=== PATIENT | female | born 1970 | race Caucasian/White ===

== ENCOUNTER 2016-08-15 09:57 | Outpatient (CLI) | payer OTHER ==
[~2016-08-15] VITALS: Ht 177.8 cm; Wt 116.1 kg
[~2016-08-15 09:57] MED LIST: BUPR150T6 PO; CPR500T PO; HYOS0.3710 PO; NAPR550T PO
--- OUTSIDE RECORDS SUMMARY | 2016-08-15 10:03 | XMS REPORT | Continuity of Care Document ---
Author Author [facility] Organization [facility] Address Unknown Phone Unavailable Allergies Active Description Code Type Severity Reaction Onset Reported/Identified Relationship to Patient Clinical Status Yes Vicodin Drug Allergy 04/26/2011 Yes Vicodin Drug Allergy N/A N/A 04/26/2011 Yes acetaminophen [id number] Drug Allergy Unknown N/A 08/21/2012 Yes hydrocodone bit [id number] Drug Allergy Unknown N/A 08/21/2012 Yes propoxyphene napsylate [id number] Drug Allergy Unknown N/A 08/21/2012 Medications Problems Date Dx Coded Attending Type Code Diagnosis Diagnosed By 04/26/2011 256.4 POLYCYSTIC OVARIAN SYNDROME 04/26/2011 314.00 ADHD, PREDOMINANTLY INATTENTIVE TYPE 04/26/2011 477.9 ALLERGIC RHINITIS 04/26/2011 564.1 IRRITABLE BOWEL SYNDROME 04/26/2011 616.2 Bartholin Gland Cyst 04/26/2011 URBAN OLIVAS DO 256.4 POLYCYSTIC OVARIAN SYNDROME 04/26/2011 URBAN OLIVAS DO 314.00 ATTENTION DEFICIT DISORDER WITHOUT HYPERACTIVITY 04/26/2011 URBAN OLIVAS DO 477.9 ALLERGIC RHINITIS 04/26/2011 URBAN OLIVAS DO 564.1 IRRITABLE BOWEL SYNDROME 04/26/2011 URBAN OLIVAS DO 616.2 Bartholin Gland Cyst 04/26/2011 256.4 POLYCYSTIC OVARIAN SYNDROME 04/26/2011 314.00 ATTENTION DEFICIT DISORDER WITHOUT HYPERACTIVITY 04/26/2011 477.9 ALLERGIC RHINITIS 04/26/2011 564.1 IRRITABLE BOWEL SYNDROME 04/26/2011 616.2 Bartholin Gland Cyst 04/26/2011 256.4 POLYCYSTIC OVARIAN SYNDROME 04/26/2011 314.00 ATTENTION DEFICIT DISORDER WITHOUT HYPERACTIVITY 04/26/2011 477.9 ALLERGIC RHINITIS 04/26/2011 564.1 IRRITABLE BOWEL SYNDROME 04/26/2011 616.2 Bartholin Gland Cyst 04/26/2011 256.4 POLYCYSTIC OVARIAN SYNDROME 04/26/2011 314.00 ATTENTION DEFICIT DISORDER WITHOUT HYPERACTIVITY 04/26/2011 477.9 ALLERGIC RHINITIS 04/26/2011 564.1 IRRITABLE BOWEL SYNDROME 04/26/2011 616.2 Bartholin Gland Cyst 04/26/2011 OLIVAS DO, URBAN K 256.4 POLYCYSTIC OVARIAN SYNDROME 04/26/2011 OLIVAS DO, URBAN K 314.00 ATTENTION DEFICIT DISORDER WITHOUT HYPERACTIVITY 04/26/2011 OLIVAS DO, URBAN K 477.9 ALLERGIC RHINITIS 04/26/2011 OLIVAS DO, URBAN K 564.1 IRRITABLE BOWEL SYNDROME 04/26/2011 OLIVAS DO, URBAN K 616.2 Bartholin Gland Cyst 04/26/2011 OLIVAS DO, URBAN K 256.4 POLYCYSTIC OVARIAN SYNDROME 04/26/2011 OLIVAS DO, URBAN K 314.00 ATTENTION DEFICIT DISORDER WITHOUT HYPERACTIVITY 04/26/2011 OLIVAS DO, URBAN K 477.9 ALLERGIC RHINITIS 04/26/2011 OLIVAS DO, URBAN K 564.1 IRRITABLE BOWEL SYNDROME 04/26/2011 OLIVAS DO, URBAN K 616.2 Bartholin Gland Cyst 04/26/2011 DEVIKA LOGISTICS SUPPLY OFFICER, MERCEDES S 256.4 POLYCYSTIC OVARIAN SYNDROME 04/26/2011 DEVIKA LOGISTICS SUPPLY OFFICER, MERCEDES S 314.00 ATTENTION DEFICIT DISORDER WITHOUT HYPERACTIVITY 04/26/2011 DEVIKA LOGISTICS SUPPLY OFFICER, MERCEDES S 477.9 ALLERGIC RHINITIS 04/26/2011 DEVIKA LOGISTICS SUPPLY OFFICER, MERCEDES S 564.1 IRRITABLE BOWEL SYNDROME 04/26/2011 DEVIKA LOGISTICS SUPPLY OFFICER, MERCEDES S 616.2 Bartholin Gland Cyst 04/26/2011 SIMON LOGISTICS SUPPLY OFFICER, PAO R 256.4 POLYCYSTIC OVARIAN SYNDROME 04/26/2011 SIMON LOGISTICS SUPPLY OFFICER, PAO R 314.00 ATTENTION DEFICIT DISORDER WITHOUT HYPERACTIVITY 04/26/2011 SIMON LOGISTICS SUPPLY OFFICER, PAO R 477.9 ALLERGIC RHINITIS 04/26/2011 SIMON LOGISTICS SUPPLY OFFICER, PAO R 564.1 IRRITABLE BOWEL SYNDROME 04/26/2011 SIMON LOGISTICS SUPPLY OFFICER, PAO R 616.2 Bartholin Gland Cyst 04/26/2011 OLIVAS DO, URBAN K 256.4 POLYCYSTIC OVARIAN SYNDROME 04/26/2011 OLIVAS DO, URBAN K 314.00 ATTENTION DEFICIT DISORDER WITHOUT HYPERACTIVITY 04/26/2011 OLIVAS DO, URBAN K 477.9 ALLERGIC RHINITIS 04/26/2011 OLIVAS DO, URBAN K 564.1 IRRITABLE BOWEL SYNDROME 04/26/2011 URBAN OLIVAS DO K 616.2 Bartholin Gland Cyst 04/26/2011 RACHELL LOGISTICS SUPPLY OFFICER, NUSRAT A 256.4 POLYCYSTIC OVARIAN SYNDROME 04/26/2011 RACHELL LOGISTICS SUPPLY OFFICER, NUSRAT A 314.00 ATTENTION DEFICIT DISORDER WITHOUT HYPERACTIVITY 04/26/2011 RACHELL LOGISTICS SUPPLY OFFICER, NUSRAT A 477.9 ALLERGIC RHINITIS 04/26/2011 RACHELL LOGISTICS SUPPLY OFFICER, NUSRAT A 564.1 IRRITABLE BOWEL SYNDROME 04/26/2011 RACHELL LOGISTICS SUPPLY OFFICER, NUSRAT A 616.2 Bartholin Gland Cyst 04/26/2011 OLIVAS KINDRA MILLERA K 256.4 POLYCYSTIC OVARIAN SYNDROME 04/26/2011 URBAN OLIVAS DO K 314.00 ATTENTION DEFICIT DISORDER WITHOUT HYPERACTIVITY 04/26/2011 URBAN OLIVAS DO K 477.9 ALLERGIC RHINITIS 04/26/2011 URBAN OLIVAS DO K 564.1 IRRITABLE BOWEL SYNDROME 04/26/2011 URBAN OLIVAS DO K 616.2 Bartholin Gland Cyst 05/08/2011 V76.2 CERVICAL CANCER SCREENING (PAP SMEAR) 05/08/2011 URBAN OLIVAS DO V76.2 CERVICAL CANCER SCREENING (PAP SMEAR) 05/08/2011 V76.2 CERVICAL CANCER SCREENING (PAP SMEAR) 05/08/2011 V76.2 CERVICAL CANCER SCREENING (PAP SMEAR) 05/08/2011 V76.2 CERVICAL CANCER SCREENING (PAP SMEAR) 05/08/2011 URBAN OLIVAS DO V76.2 CERVICAL CANCER SCREENING (PAP SMEAR) 05/08/2011 URBAN OLIVAS DO V76.2 CERVICAL CANCER SCREENING (PAP SMEAR) 05/08/2011 DEVIKAMONCHO JOYA MERCEDES S V76.2 CERVICAL CANCER SCREENING (PAP SMEAR) 05/08/2011 PAO SIMON APRN R V76.2 CERVICAL CANCER SCREENING (PAP SMEAR ) 05/08/2011 URBAN OLIVAS DO V76.2 CERVICAL CANCER SCREENING (PAP SMEAR) 05/08/2011 RACHELL LOGISTICS SUPPLY OFFICER, NUSRAT A V76.2 CERVICAL CANCER SCREENING (PAP SMEAR) 05/08/2011 URBAN OLIVAS DO V76.2 CERVICAL CANCER SCREENING (PAP SMEAR) 05/25/2011 466.0 Bronchitis, Acute 05/25/2011 530.81 GERD 05/25/2011 OLIVAS DO, URBAN K 466.0 Bronchitis, Acute 05/25/2011 OLIVAS DO, URBAN K 530.81 GERD 05/25/2011 466.0 Bronchitis, Acute 05/25/2011 530.81 GERD 05/25/2011 466.0 Bronchitis, Acute 05/25/2011 530.81 GERD 05/25/2011 466.0 Bronchitis, Acute 05/25/2011 530.81 GERD 05/25/2011 OLIVAS DO, URBAN K 466.0 Bronchitis, Acute 05/25/2011 OLIVAS DO, URBAN K 530.81 GERD 05/25/2011 OLIVAS DO, URBAN K 466.0 Bronchitis, Acute 05/25/2011 OLIVAS DO, URBAN K 530.81 GERD 05/25/2011 DEVIKA LOGISTICS SUPPLY OFFICERROSEANNEMERCEDES S 466.0 Bronchitis, Acute 05/25/2011 DEVIKA LOGIST[employer] SUPPLY OFFICER MERCEDES S 530.81 GERD 05/25/2011 CHILO SIMON APRNRICIA R 466.0 Bronchitis, Acute 05/25/2011 CHILO SIMON APRNRICIA R 530.81 GERD 05/25/2011 OLIVAS DO, URBAN K 466.0 Bronchitis, Acute 05/25/2011 OLIVAS DO, URBAN K 530.81 GERD 05/25/2011 RACHELL LOGISTICS SUPPLY OFFICER, NUSRAT A 466.0 Bronchitis, Acute 05/25/2011 RACHELLAWILDA HAIRSTONN NUSRAT A 530.81 GERD 05/25/2011 OLIVAS DO, URBAN K 466.0 Bronchitis, Acute 05/25/2011 OLIVAS DO, URBAN K 530.81 GERD 05/27/2011 562.00 DIVERTICULOSIS 05/27/2011 OLIVAS DO, URBAN K 562.00 DIVERTICULOSIS 05/27/2011 562.00 DIVERTICULOSIS 05/27/2011 562.00 DIVERTICULOSIS 05/27/2011 562.00 DIVERTICULOSIS 05/27/2011 OLIVAS DO, URBAN K 562.00 DIVERTICULOSIS 05/27/2011 OLIVAS DO, URBAN K 562.00 DIVERTICULOSIS 05/27/2011 DEVIKA JOYA MERCEDES S 562.00 DIVERTICULOSIS 05/27/2011 CHILO SIMON APRNRICIA R 562.00 DIVERTICULOSIS 05/27/2011 OLIVAS DO, URBAN K 562.00 DIVERTICULOSIS 05/27/2011 RACHELL LOGISTICS SUPPLY OFFICER, NUSRAT A 562.00 DIVERTICULOSIS 05/27/2011 OLIVAS DO, URBAN K 562.00 DIVERTICULOSIS 10/22/2011 461.9 Sinusitis Acute 10/22/2011 530.81 GERD 10/22/2011 OLIVAS DO, URBAN K 461.9 Sinusitis Acute 10/22/2011 OLIVAS DO, URBAN K 530.81 GERD 10/22/2011 461.9 Sinusitis Acute 10/22/2011 530.81 GERD 10/22/2011 461.9 Sinusitis Acute 10/22/2011 530.81 GERD 10/22/2011 461.9 Sinusitis Acute 10/22/2011 530.81 GERD 10/22/2011 OLIVAS DO, URBAN K 461.9 Sinusitis Acute 10/22/2011 OLIVAS DO, URBAN K 530.81 GERD 10/22/2011 OLIVAS DO, URBAN K 461.9 Sinusitis Acute 10/22/2011 OLIVAS DO, URBAN K 530.81 GERD 10/22/2011 DEVIKA LOGISTICS SUPPLY OFFICER, MERCEDES S 461.9 Sinusitis Acute 10/22/2011 DEVIKA LOGISTICS SUPPLY OFFICER, MERCEDES S 530.81 GERD 10/22/2011 SIMON LOGISTICS SUPPLY OFFICER, PAO R 461.9 Sinusitis Acute 10/22/2011 SIMON LOGISTICS SUPPLY OFFICER, PAO R 530.81 GERD 10/22/2011 OLIVAS DO, URBAN K 461.9 Sinusitis Acute 10/22/2011 OLIVAS DO, URBAN K 530.81 GERD 10/22/2011 RACHELL LOGISTICS SUPPLY OFFICER, NUSRAT A 461.9 Sinusitis Acute 10/22/2011 RACHELL LOGISTICS SUPPLY OFFICER, NUSRAT A 530.81 GERD 10/22/2011 OLIVAS DO, URBAN K 461.9 Sinusitis Acute 10/22/2011 OLIVAS DO, URBAN K 530.81 GERD 12/18/2011 571.8 OTHER CHRONIC NONALCOHOLIC LIVER DISEASE 12/18/2011 599.70 Hematuria Unspecified 12/18/2011 OLIVAS DO, URBAN K 571.8 OTHER CHRONIC NONALCOHOLIC LIVER DISEASE 12/18/2011 OLIVAS DO, URBAN K 599.70 Hematuria Unspecified 12/18/2011 571.8 OTHER CHRONIC NONALCOHOLIC LIVER DISEASE 12/18/2011 599.70 Hematuria Unspecified 12/18/2011 571.8 OTHER CHRONIC NONALCOHOLIC LIVER DISEASE 12/18/2011 599.70 Hematuria Unspecified 12/18/2011 571.8 OTHER CHRONIC NONALCOHOLIC LIVER DISEASE 12/18/2011 599.70 Hematuria Unspecified 12/18/2011 OLIVAS DO, URBAN K 571.8 OTHER CHRONIC NONALCOHOLIC LIVER DISEASE 12/18/2011 OLIVAS DO, URBAN K 599.70 Hematuria Unspecified 12/18/2011 OLIVAS DO, URBAN K 571.8 OTHER CHRONIC NONALCOHOLIC LIVER DISEASE 12/18/2011 OLIVAS DO, URBAN K 599.70 Hematuria Unspecified 12/18/2011 DEVIKA LOGISTICS SUPPLY OFFICER, MERCEDES S 571.8 OTHER CHRONIC NONALCOHOLIC LIVER DISEASE 12/18/2011 DEVIKA LOGISTICS SUPPLY OFFICER, MERCEDES S 599.70 Hematuria Unspecified 12/18/2011 SIMON LOGISTICS SUPPLY OFFICER, PAO R 571.8 OTHER CHRONIC NONALCOHOLIC LIVER DISEASE 12/18/2011 SIMON LOGISTICS SUPPLY OFFICER, PAO R 599.70 Hematuria Unspecified 12/18/2011 OLIVAS DO, URBAN K 571.8 OTHER CHRONIC NONALCOHOLIC LIVER DISEASE 12/18/2011 OLIVAS DO, URBAN K 599.70 Hematuria Unspecified 12/18/2011 RACHELL LOGISTICS SUPPLY OFFICER, NUSRAT A 571.8 OTHER CHRONIC NONALCOHOLIC LIVER DISEASE 12/18/2011 RACHELL LOGISTICS SUPPLY OFFICER, NUSRAT A 599.70 Hematuria Unspecified 12/18/2011 OLIVAS DO, URBAN K 571.8 OTHER CHRONIC NONALCOHOLIC LIVER DISEASE 12/18/2011 OLIVAS DO, URBAN K 599.70 Hematuria Unspecified 01/17/2012 V72.31 PLATE GRAINER EXAM, ROUTINE 01/17/2012 V76.10 BREAST CANCER SCREENING 01/17/2012 URBAN OLIVAS DO K V72.31 PLATE GRAINER EXAM, ROUTINE 01/17/2012 OLIVAS DO URBAN K V76.10 BREAST CANCER SCREENING 01/17/2012 V72.31 PLATE GRAINER EXAM, ROUTINE 01/17/2012 V76.10 BREAST CANCER SCREENING 01/17/2012 V72.31 PLATE GRAINER EXAM, ROUTINE 01/17/2012 V76.10 BREAST CANCER SCREENING 01/17/2012 V72.31 PLATE GRAINER EXAM, ROUTINE 01/17/2012 V76.10 BREAST CANCER SCREENING 01/17/2012 OLIVAS KINDRA MILLERA K V72.31 PLATE GRAINER EXAM, ROUTINE 01/17/2012 OLIVAS DO URBAN K V76.10 BREAST CANCER SCREENING 01/17/2012 OLIVAS DO, URBAN K V72.31 PLATE GRAINER EXAM, ROUTINE 01/17/2012 OLIVAS DO URBAN K V76.10 BREAST CANCER SCREENING 01/17/2012 MERCEDES FORTUNE APRN S V72.31 PLATE GRAINER EXAM, ROUTINE 01/17/2012 MERCEDES FORTUNE APRN S V76.10 BREAST CANCER SCREENING 01/17/2012 AURELIO SIMON APRNIA R V72.31 PLATE GRAINER EXAM, ROUTINE 01/17/2012 PAO SIMON APRN R V76.10 BREAST CANCER SCREENING 01/17/2012 OLIVAS DO URBAN K V72.31 PLATE GRAINER EXAM, ROUTINE 01/17/2012 OLIVAS DO URBAN K V76.10 BREAST CANCER SCREENING 01/17/2012 NUSRAT LOVETT APRN A V72.31 PLATE GRAINER EXAM, ROUTINE 01/17/2012 NUSRAT LOVETT APRN A V76.10 BREAST CANCER SCREENING 01/17/2012 OLIVAS DO URBAN K V72.31 PLATE GRAINER EXAM, ROUTINE 01/17/2012 OLIVAS DO URBAN K V76.10 BREAST CANCER SCREENING 02/26/2012 465.9 Acute Upper Respiratory Infections Of Unspecified Site 02/26/2012 OLIVAS DO URBAN K 465.9 Acute Upper Respiratory Infections Of Unspecified Site 02/26/2012 465.9 Acute Upper Respiratory Infections Of Unspecified Site 02/26/2012 465.9 Acute Upper Respiratory Infections Of Unspecified Site 02/26/2012 465.9 Acute Upper Respiratory Infections Of Unspecified Site 02/26/2012 OLIVAS DO URBAN K 465.9 Acute Upper Respiratory Infections Of Unspecified Site 02/26/2012 DEISY MILLER URBAN K 465.9 Acute Upper Respiratory Infections Of Unspecified Site 02/26/2012 MERCEDES FORTUNE APRN S 465.9 Acute Upper Respiratory Infections Of Unspecified Site 02/26/2012 PAO SIMON APRN R 465.9 Acute Upper Respiratory Infections Of Unspecified Site 02/26/2012 OLIVAS DO URBAN K 465.9 Acute Upper Respiratory Infections Of Unspecified Site 02/26/2012 ASUNCION LOVETT APRNIDI A 465.9 Acute Upper Respiratory Infections Of Unspecified Site 02/26/2012 OLIVAS DO URBAN K 465.9 Acute Upper Respiratory Infections Of Unspecified Site 05/22/2012 783.1 ABNORMAL WEIGHT GAIN 05/22/2012 787.91 DIARRHEA 05/22/2012 789.00 ABDOMINAL PAIN UNSPECIFIED SITE 05/22/2012 OLIVAS DO, URBAN K 783.1 ABNORMAL WEIGHT GAIN 05/22/2012 OLIVAS DO, URBAN K 787.91 DIARRHEA 05/22/2012 OLIVAS DO, URBAN K 789.00 ABDOMINAL PAIN UNSPECIFIED SITE 05/22/2012 783.1 ABNORMAL WEIGHT GAIN 05/22/2012 787.91 DIARRHEA 05/22/2012 789.00 ABDOMINAL PAIN UNSPECIFIED SITE 05/22/2012 783.1 ABNORMAL WEIGHT GAIN 05/22/2012 787.91 DIARRHEA 05/22/2012 789.00 ABDOMINAL PAIN UNSPECIFIED SITE 05/22/2012 783.1 ABNORMAL WEIGHT GAIN 05/22/2012 787.91 DIARRHEA 05/22/2012 789.00 ABDOMINAL PAIN UNSPECIFIED SITE 05/22/2012 OLIVAS DO, URBAN K 783.1 ABNORMAL WEIGHT GAIN 05/22/2012 OLIVAS DO, URBAN K 787.91 DIARRHEA 05/22/2012 OLIVAS DO, URBAN K 789.00 ABDOMINAL PAIN UNSPECIFIED SITE 05/22/2012 OLIVAS DO, URBAN K 783.1 ABNORMAL WEIGHT GAIN 05/22/2012 OLIVAS DO, URBAN K 787.91 DIARRHEA 05/22/2012 OLIVAS DO, URBAN K 789.00 ABDOMINAL PAIN UNSPECIFIED SITE 05/22/2012 DEVIKA JOYA MERCEDES S 783.1 ABNORMAL WEIGHT GAIN 05/22/2012 DEVIKA JOYA MERCEDES S 787.91 DIARRHEA 05/22/2012 ROSEANNE FORTUNE APRNNDA S 789.00 ABDOMINAL PAIN UNSPECIFIED SITE 05/22/2012 ALFRED JOYA PAO R 783.1 ABNORMAL WEIGHT GAIN 05/22/2012 ALFRED LOGISTICS SUPPLY OFFICER, PAO R 787.91 DIARRHEA 05/22/2012 ALFRED LOGISTICS SUPPLY OFFICER, PAO R 789.00 ABDOMINAL PAIN UNSPECIFIED SITE 05/22/2012 OLIVAS DO, URBAN K 783.1 ABNORMAL WEIGHT GAIN 05/22/2012 OLIVAS DO, URBAN K 787.91 DIARRHEA 05/22/2012 OLIVAS DO, URBAN K 789.00 ABDOMINAL PAIN UNSPECIFIED SITE 05/22/2012 NUSRAT LOVETT APRN A 783.1 ABNORMAL WEIGHT GAIN 05/22/2012 RACHELL LOGISTICS SUPPLY OFFICER, NUSRAT A 787.91 DIARRHEA 05/22/2012 RACHELL LOGISTICS SUPPLY OFFICER, NUSRAT A 789.00 ABDOMINAL PAIN UNSPECIFIED SITE 05/22/2012 OLIVAS DO, URBAN K 783.1 ABNORMAL WEIGHT GAIN 05/22/2012 OLIVAS DO, URBAN K 787.91 DIARRHEA 05/22/2012 OLIVAS DO, URBAN K 789.00 ABDOMINAL PAIN UNSPECIFIED SITE 07/16/2012 OLIVAS DO, URBAN K 569.42 ANAL OR RECTAL PAIN 07/16/2012 OLIVAS DO, URBAN K 616.2 BARTHOLIN CYST 07/16/2012 569.42 ANAL OR RECTAL PAIN 07/16/2012 616.2 BARTHOLIN CYST 07/16/2012 569.42 ANAL OR RECTAL PAIN 07/16/2012 616.2 BARTHOLIN CYST 07/16/2012 569.42 ANAL OR RECTAL PAIN 07/16/2012 616.2 BARTHOLIN CYST 07/16/2012 OLIVAS DO, URBAN K 569.42 ANAL OR RECTAL PAIN 07/16/2012 OLIVAS DO, URBAN K 616.2 BARTHOLIN CYST 07/16/2012 OLIVAS DO, URBAN K 569.42 ANAL OR RECTAL PAIN 07/16/2012 OLIVAS DO, URBAN K 616.2 BARTHOLIN CYST 07/16/2012 DEVIKA LOGISTICS SUPPLY OFFICER, MERCEDES S 569.42 ANAL OR RECTAL PAIN 07/16/2012 DEVIKA LOGISTICS SUPPLY OFFICER, MERCEDES S 616.2 BARTHOLIN CYST 07/16/2012 ALFRED LOGISTICS SUPPLY OFFICER, PAO R 569.42 ANAL OR RECTAL PAIN 07/16/2012 SIMON LOGISTICS SUPPLY OFFICER, PAO R 616.2 BARTHOLIN CYST 07/16/2012 OLIVAS DO, URBAN K 569.42 ANAL OR RECTAL PAIN 07/16/2012 OLIVAS DO, URBAN K 616.2 BARTHOLIN CYST 07/16/2012 RACHELL LOGISTICS SUPPLY OFFICER, NUSRAT A 569.42 ANAL OR RECTAL PAIN 07/16/2012 RACHELL LOGISTICS SUPPLY OFFICER, NUSRAT A 616.2 BARTHOLIN CYST 07/16/2012 OLIVAS DO, URBAN K 569.42 ANAL OR RECTAL PAIN 07/16/2012 OLIVAS DO, URBAN K 616.2 BARTHOLIN CYST 07/28/2012 578.1 HEMATOCHEZIA 07/28/2012 578.1 HEMATOCHEZIA 07/28/2012 578.1 HEMATOCHEZIA 07/28/2012 KINDRA OLIVAS DOA K 578.1 HEMATOCHEZIA 07/28/2012 DEISY MILLER URBAN K 578.1 HEMATOCHEZIA 07/28/2012 MERCEDES FORTUNE APRN S 578.1 HEMATOCHEZIA 07/28/2012 PAO SIMON APRN R 578.1 HEMATOCHEZIA 07/28/2012 KINDRA OLIVAS DOA K 578.1 HEMATOCHEZIA 07/28/2012 NUSRAT LOVETT APRN A 578.1 HEMATOCHEZIA 07/28/2012 KINDRA OLIVAS DOA K 578.1 HEMATOCHEZIA 08/21/2012 Ot 562.11 DIVERTICULITIS COLON (W/O MENT OF HEMORR 08/21/2012 Ot 599.0 URIN TRACT INFECTION NOS 08/21/2012 Ot 789.03 ABDOMINAL PAIN, RIGHT LOWER QUADRANT 08/25/2012 Ot 455.9 RESIDUAL HEMORRHOID TAGS 08/25/2012 Ot 569.3 RECTAL ANAL HEMORRHAGE 08/25/2012 Ot 569.84 ANGIODYSPLASIA INTESTINE (W/O MENT OF HE 04/21/2013 KINDRA OLIVAS DOA K 692.2 CONTACT DERMATITIS AND OTHER ECZEMA DUE TO SOLVENTS 04/21/2013 KINDRA OLIVAS DOA K 729.4 PLANTAR FASCIITIS 04/21/2013 KINDRA OLIVAS DOA K 692.2 CONTACT DERMATITIS AND OTHER ECZEMA DUE TO SOLVENTS 04/21/2013 KINDRA OLIVAS DOA K 729.4 PLANTAR FASCIITIS 04/21/2013 MERCEDES FORTUNE APRN S 692.2 CONTACT DERMATITIS AND OTHER ECZEMA DUE TO SOLVENTS 04/21/2013 MERCEDES FORTUNE APRN S 729.4 PLANTAR FASCIITIS 04/21/2013 PAO SIMON APRN R 692.2 CONTACT DERMATITIS AND OTHER ECZEMA DUE TO SOLVENTS 04/21/2013 PAO SIMON APRN R 729.4 PLANTAR FASCIITIS 04/21/2013 KINDRA OLIVAS DOA K 692.2 CONTACT DERMATITIS AND OTHER ECZEMA DUE TO SOLVENTS 04/21/2013 KINDRA OLIVAS DOA K 729.4 PLANTAR FASCIITIS 04/21/2013 NUSRAT LOVETT APRN A 692.2 CONTACT DERMATITIS AND OTHER ECZEMA DUE TO SOLVENTS 04/21/2013 RACHELL LOGISTICS SUPPLY OFFICER NUSRAT A 729.4 PLANTAR FASCIITIS 04/21/2013 OLIVAS DO URBAN K 692.2 CONTACT DERMATITIS AND OTHER ECZEMA DUE TO SOLVENTS 04/21/2013 OLIVAS DO, URBAN K 729.4 PLANTAR FASCIITIS 08/27/2013 DEVIKA LOGISTICS SUPPLY OFFICER, MERCEDES S 389.9 UNSPECIFIED HEARING LOSS 08/27/2013 DEVIKA LOGISTICS SUPPLY OFFICER, MERCEDES S 461.9 SINUSITIS ACUTE 08/27/2013 ALFRED LOGISTICS SUPPLY OFFICER, PAO R 389.9 UNSPECIFIED HEARING LOSS 08/27/2013 SIMON LOGISTICS SUPPLY OFFICER, PAO R 461.9 SINUSITIS ACUTE 08/27/2013 OLIVAS DO, URBAN K 389.9 UNSPECIFIED HEARING LOSS 08/27/2013 OLIVAS DO, URBAN K 461.9 SINUSITIS ACUTE 08/27/2013 ASUNCION LOVETT APRNIDI A 389.9 UNSPECIFIED HEARING LOSS 08/27/2013 ASUNCION LOVETT APRNIDI A 461.9 SINUSITIS ACUTE 08/27/2013 OLIVAS DO, URBAN K 389.9 UNSPECIFIED HEARING LOSS 08/27/2013 OLIVAS DO, URBAN K 461.9 SINUSITIS ACUTE 11/20/2013 ALFRED LOGISTICS SUPPLY OFFICER, PAO R 381.81 EUSTACHIAN TUBE DYSFUNCTION 11/20/2013 OLIVAS DO, URBAN K 381.81 EUSTACHIAN TUBE DYSFUNCTION 11/20/2013 ASUNCION LOVETT APRNIDI A 381.81 EUSTACHIAN TUBE DYSFUNCTION 11/20/2013 OLIVAS DO, URBAN K 381.81 EUSTACHIAN TUBE DYSFUNCTION 02/01/2014 DEISY DO, URBAN K 599.70 HEMATURIA UNSPECIFIED 02/01/2014 OLIVAS DO, URBAN K 723.1 CERVICALGIA 02/01/2014 OLIVAS DO, URBAN K 726.32 LATERAL EPICONDYLITIS ELBOW REGION 02/01/2014 OLIVAS DO, URBAN K 729.5 PAIN IN LIMB 02/01/2014 OLIVAS DO, URBAN K 782.0 DISTURBANCE OF SKIN SENSATION 02/01/2014 OLIVAS DO URBAN K V15.09 PERSONAL HISTORY OF OTHER ALLERGY OTHER THAN TO MEDICINAL AGENTS 02/01/2014 RACHELL LOGISTICS SUPPLY OFFICERASUNCIONNUSRAT A 599.70 HEMATURIA UNSPECIFIED 02/01/2014 RACHELL LOGISTICS SUPPLY OFFICERASUNCIONNUSRAT A 723.1 CERVICALGIA 02/01/2014 RACHELLNUSRAT Son APRN A 726.32 LATERAL EPICONDYLITIS ELBOW REGION 02/01/2014 NUSRAT LOVETT APRN A 729.5 PAIN IN LIMB 02/01/2014 RACHELLNUSRAT Son APRN A 782.0 DISTURBANCE OF SKIN SENSATION 02/01/2014 RACHELLNUSRAT Son APRN A V15.09 PERSONAL HISTORY OF OTHER ALLERGY OTHER THAN TO MEDICINAL AGENTS 02/01/2014 URBAN OLIVAS DO K 599.70 HEMATURIA UNSPECIFIED 02/01/2014 OLIVAS KINDRA MILLERA K 723.1 CERVICALGIA 02/01/2014 OLIVAS KINDRA MILLERA K 726.32 LATERAL EPICONDYLITIS ELBOW REGION 02/01/2014 OLIVAS KINDRA MILLERA K 729.5 PAIN IN LIMB 02/01/2014 OLIVAS KINDRA MILLERA K 782.0 DISTURBANCE OF SKIN SENSATION 02/01/2014 OLIVAS KINDRA MILLERA K V15.09 PERSONAL HISTORY OF OTHER ALLERGY OTHER THAN TO MEDICINAL AGENTS 03/02/2014 NUSRAT LOVETT APRN A V73.81 HPV SCREENING 03/02/2014 KINDRA OLIVAS DOA K V73.81 HPV SCREENING 03/22/2014 KINDRA OLIVAS DOA K 079.4 HPV 03/22/2014 KINDRA OLIVAS DOA K 795.01 ABNORMAL PAP - ASCUS 03/26/2016 NUSRAT LOVETT APRN Ot V76.12 OTH SCREEN MAMMO-MALIGN NEOPLASM OF BETH 03/28/2016 BEN ESPINOZA DO Ot R10.2 PELVIC AND PERINEAL PAIN 03/28/2016 BEN ESPINOZA DO Ot R10.2 PELVIC AND PERINEAL PAIN 04/01/2016 BEN ESPINOZA DO Ot R10.2 PELVIC AND PERINEAL PAIN 04/04/2016 NUSRAT LOVETT APRN Ot V76.12 OTH SCREEN MAMMO-MALIGN NEOPLASM OF BETH 04/04/2016 BEN ESPINOZA DO Ot R10.2 PELVIC AND PERINEAL PAIN 04/10/2016 NUSRAT LOVETT APRN Ot V76.12 OTH SCREEN MAMMO-MALIGN NEOPLASM OF BETH 04/10/2016 BEN ESPINOZA DO Ot R10.2 PELVIC AND PERINEAL PAIN 04/11/2016 BEN ESPINOZA DO Ot R10.2 PELVIC AND PERINEAL PAIN 04/11/2016 FENECH DOBEN Ot Z12.31 ENCNTR SCREEN MAMMOGRAM FOR MALIGNANT NE 04/11/2016 IVONNE BATES MD Ot M47.816 SPONDYLOSIS W/O MYELOPATHY OR RADICULOPA 04/11/2016 IVONNE BATES MD Ot 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 04/12/2016 BEN ESPINOZA DO Ot Z12.31 ENCNTR SCREEN MAMMOGRAM FOR MALIGNANT NE 04/23/2016 HENOK HAMMER, EVANS Morgan Ot Z01.818 ENCOUNTER FOR OTHER PREPROCEDURAL EXAMIN 05/09/2016 IVONNE BATES MD Ot M47.816 SPONDYLOSIS W/O MYELOPATHY OR RADICULOPA 05/09/2016 IVONNE BATES MD Ot 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 05/09/2016 BEN ESPINOZA DO Ot Z12.31 ENCNTR SCREEN MAMMOGRAM FOR MALIGNANT NE Procedures Code [place] [address] HEMOCCULT 2012 NEEMA LEIGH 07/16/2012 General S Evans Whiting 07/28/2012 83106 XRAY HEEL RIGHT 2 VIEWS 04/21/2013 Podiatry Demetria Charles 04/21/2013 77604 UA W/ CULTURE IF INDICATED 02/01/2014 30499 UA W/MICROSCOPY 02/01/2014 87015 ROUTINE VENIPUNCTURE 03/02/2014 67467 XRAY CERVICAL SPINE, 2 OR 3 VIEWS 03/02/2014 40216 XRAY THORACIC SPINE 2 VIEWS 03/02/2014 32773 XRAY LUMBAR SPINE 2 OR 3 VIEWS 03/02/[address] SPINE, CERVICAL W/O CONTRAST 03/02/[address] SPINE, THORACIC W/O DYE 03/02/[address] SPINE, LUMBAR W/O CONTRAST 03/02/2014 93897 MAMMOGRAM, SCREENING 03/02/2014 88838 PAP SMEAR 2013 Q0091 PAP SMEAR OBTAIN SMEAR 03/02/2014 29423 UA W/ CULTURE IF INDICATED 03/02/2014 97166 A1C (IN-HOUSE) 89303 CBC 03/02/2014 9115363 GFR CALC (RESULT ONLY) 03/02/2014 14316 CMP 03/02/2014 02554 VIT B 12 2013 95380 TSH 03/02/2014 95448 FOLATE 2013 ANAANA IVY ANALYZER (SCREEN) 03/03/2014 11487 COLP W/BIOPSY OF CERVIX 03/22/2014 09076 TEST, URINE (IN-HOUSE) 03/22/2014 Results Encounters ACCT No. Visit Date/Time Discharge Status Pt. Type Provider Facility Loc./Unit Complaint [id number] 04/23/2016 13:00:00 2015 13:18:00 DIS Outpatient EVANS WHITING MD [facility] PREOP DIVERTICULOSIS [id number] 03/22/2014 15:20:00 2013 23:59:59 CLS Outpatient NUSRAT LOVETT APRN [facility] RAD ROUTINE [id number] 04/11/2016 11:16:00 ACT Outpatient BEN ESPINOZA DO [facility] RAD SCREENING [id number] 04/10/2016 14:13:00 ACT Outpatient IVONNE BATES MD [facility] RAD FECAL INCONTINENCE [id number] 03/26/2016 10:24:00 ACT Outpatient BEN ESPINOZA DO [facility] RAD CHRONIC FEMALE PAIN [id number] 03/26/2016 10:23:00 Document Registration [id number] 08/25/2012 09:32:00 Document Registration [id number] 08/21/2012 14:36:00 Document Registration
[2016-08-15 10:33] VITALS: BP 133/83
[2016-08-15] MEDS ORDERED: NAPR550T3 PO (10:33)
[2016-08-15] MEDS ORDERED: TRAM50TA2 PO (10:33)
[2016-08-15 11:27] LABS: BASOPHILS % (AUTO) 0 % (0-10); EOSINOPHILS # (AUTO) 0.2 10^3/uL (0.0-0.3); EOSINOPHILS % (AUTO) 2 % (0-10); LYMPHOCYTES # (AUTO) 2.5 X 10^3 (1.0-4.0); LYMPHOCYTES % (AUTO) 21 % (12-44); MEAN CORPUSCULAR HEMOGLOBIN 29 PG (25-34); MEAN CORPUSCULAR HGB CONC 33 G/DL (32-36); MEAN CORPUSCULAR VOLUME 87 FL (80-99); MEAN PLATELET VOLUME 9.6 FL (7.4-10.4); MONOCYTES # (AUTO) 0.7 X 10^3 (0.0-1.0); MONOCYTES % (AUTO) 6 % (0-12); NEUTROPHILS # (AUTO) 8.1 X 10^3 (1.8-7.8); NEUTROPHILS % (AUTO) 71 % (42-75); PLATELET COUNT 362 10^3/uL (130-400); RED BLOOD COUNT 4.85 10^6/uL (4.35-5.85); WHITE BLOOD COUNT 11.4 10^3/uL (4.3-11.0)
== END 2016-08-15 10:50 | disposition home or self-care (01) ==
LOC: PREOP 09:57
PROVIDERS: ATTEND Obstetrics & Gynecology
DX: Z01.812 Encounter for preprocedural laboratory examination (principal); Z11.2 Encounter for screening for other bacterial diseases; D25.9 Leiomyoma of uterus, unspecified; N75.0 Cyst of Bartholin's gland
CPT/HCPCS: 36415; 85025; 86850; 86900; 86901; 87081

== ENCOUNTER 2016-11-20 05:49 | Outpatient (CLI) | payer OTHER ==
[~2016-11-20] VITALS: Ht 177.8 cm; Wt 116.1 kg
[~2016-11-20 05:49] MED LIST changes: +NAPR550T3 PO; +TRAM50TA2 PO
[2016-11-20] MEDS ORDERED: DEXT10TA9 PO ×2 (12:18)
== END 2016-11-20 12:24 ==
LOC: PREOP 05:49
PROVIDERS: ATTEND Surgery
DX: Z01.818 Encounter for other preprocedural examination (principal); R19.5 Other fecal abnormalities

== ENCOUNTER 2016-11-22 08:19 | Day surgery (SDC) | payer OTHER ==
[~2016-11-22] VITALS: Ht 177.8 cm; Wt 116.1 kg
[~2016-11-22 08:19] MED LIST changes: +DEXT10TA9 PO
[2016-11-22] MEDS ORDERED: NS IV 500 ML 500 ML IV PRN (08:29)
[2016-11-22] MEDS ORDERED: NALOXONE 0.4 MG/ML 1 ML (NARCAN) VIAL IVP PRN (08:30)
[2016-11-22] MEDS ORDERED: FLUMAZENIL (ROMAZICON) 0.1 MG/ML 5 ML VIAL INJ PRN (08:30)
[2016-11-22 08:53] VITALS: BP 126/80
--- NOTE | 2016-11-22 09:56 | Conscious Sedation/ASA ---
Conscious Sedation Pre-Proced Time Reviewed: 09:56 ASA Class: 2 Airway Mallampati Classification: ([place] appropriate class) I. II. III, IV Lungs Heart ASA score ASA 1: a normal healthy patient ASA 2: a patient with a mild systemic disease (mid diabetes, controlled hypertension, obesity ASA 3: a patient with a severe systemic disease that limits activity (angina , COPD, prior Myocardial infarction) ASA 4: a patient with an incapacitating disease that is a constant threat to life (CHF, renal failure) ASA 5: a moribund patient not expected to survive 24 hrs. (ruptured aneurysm) ASA 6: a declared brain patient whose organs are being harvested. For emergent operations, add the letter E after the classification Grade 1 Sedation Plan: Discussed options with patient/fam Note The patient is an appropriate candidate to undergo the planned procedure, sedation, and anesthesia. The patient immediately re-assessed prior to indication. GEENA WHITING MD Nov 22, 2016 9:56 am
[2016-11-22] MEDS ORDERED: MIDAZOLAM 2 MG/2 ML (VERSED) VIAL ONE ×4 (10:02→10:03)
[2016-11-22] MEDS ORDERED: fentaNYL INJECTION 100 MCG/2 ML AMP ONE (10:02)
[2016-11-22] MEDS: MIDAZOLAM 2 MG/2 ML (VERSED) VIAL IVP PRN ×3 (10:10→10:17)
[2016-11-22] MEDS: fentaNYL INJECTION 100 MCG/2 ML AMP IVP PRN ×2 (10:11→10:15)
--- NOTE | 2016-11-22 10:29 | Endoscopy Procedure Report ---
Endoscopy Report Date: Nov 22, 2016 Preoperative Diagnosis: change in bowel habits Study Performed: Colonoscopy Procedure Instrument: Colonoscope Endo Procedure/Findings Findings 1.: Diverticulosis, Vascular Ectasias Recommendations: Recommendations: 1.: Colonscopy in 10 years Copy Copies To 1: IVONNE BATES MD, XAVIER M MD Nov 22, 2016 10:29 am
--- NOTE | 2016-11-22 10:30 | Discharge Inst-Simple/Standard ---
Discharge Inst-Standard Discharge Medications New, Converted or Re-Newed RX: Other Patient Instructions/Follow Up Plan of Care/Instructions/FU: follow-up with Dr. Huston Activity as Tolerated: Yes Discharge Diet: No Restrictions GEENA WHITING MD Nov 22, 2016 10:30 am
[2016-11-22 10:35] VITALS: BP 126/80
[2016-11-22 11:00] VITALS: BP 113/57
--- NOTE | 2016-11-22 11:15 | OPERATIVE REPORT ---
DATE OF SERVICE: 11/22/2016 PROCEDURE: Colonoscopy. SURGEON: Geena Whiting MD INDICATION FOR PROCEDURE: This lady came in for colonoscopy to evaluate a change in her bowel habits. Informed consent was obtained after reviewing the procedure in detail. DESCRIPTION OF PROCEDURE: She was placed in left lateral decubitus position and her vital signs were monitored. Conscious sedation was achieved using Versed and fentanyl. Digital rectal examination was unremarkable, especially, the sphincter function appeared to be satisfactory. The colonoscope was then introduced into the rectum and advanced all the way up to the cecum. The quality of bowel preparation was excellent. The scope was then withdrawn slowly and the mucosa examined in a systematic fashion. FINDINGS: 1. Very few sigmoid diverticula. 2. Two small AV malformations, about a mm each, at the distal sigmoid colon. These should be considered incidental findings and appear to be unchanged. She tolerated the procedure well and was taken back to the nursing area in a stable condition. IMPRESSION: Change in bowel habits. Uncomplicated diverticulosis. Normal sphincter function. Could be managed on the lines of irritable bowel syndrome. Job ID: [id number] DocumentID: [id number] Dictated Date: 11/22/2016 10:27:22 Pole Framer Date: 11/22/2016 11:15:49 Dictated By: GEENA WHITING MD [facility]
[2016-11-22 11:20] VITALS: BP 113/57
== END 2016-11-22 11:20 | disposition home or self-care (01) ==
LOC: ENDO 08:19
PROVIDERS: ATTEND Surgery
DX: R19.4 Change in bowel habit (principal); K57.30 Diverticulosis of large intestine without perforation or abscess without bleeding; K31.819 Angiodysplasia of stomach and duodenum without bleeding; K21.9 Gastro-esophageal reflux disease without esophagitis; F32.9 Major depressive disorder, single episode, unspecified
CPT/HCPCS: 84703

== ENCOUNTER → 2017-02-20 | Outpatient (CLI) | payer OTHER ==
[~2017-02-20] MED LIST changes: +DOCU100C37 PO; +HYDR2TAB6 PO; +IBUP-1773 PO; +NAPR-1067 PO; +NAPR-1070 PO; -NAPR550T PO; -NAPR550T3 PO; +SIME80TA16 PO
--- NOTE | 2017-02-20 14:11 | Diagnostic Imaging Report ---
Indication: Chronic female pelvic pain. Transabdominal and transvaginal study was performed. Uterus measures 8 x 5 x 5 cm. The endometrium measures 3 mm. Neither ovary is identified. There is a 2 cm fibroid in the posterior uterus. The endometrium appears normal. The ovaries are not identified but no pelvic mass or free fluid is seen. IMPRESSION: There is a small uterine fibroid. No acute abnormality is seen. Exam is similar to a prior study from 03/26/16. Dictated by: Dictated on workstation # [id number]
== END ==
LOC: RAD 13:04
PROVIDERS: ATTEND Obstetrics & Gynecology
DX: D25.9 Leiomyoma of uterus, unspecified (principal)
CPT/HCPCS: 76830; 76856

== ENCOUNTER 2017-03-14 10:32 | Outpatient (CLI) | payer OTHER ==
[~2017-03-14] VITALS: Ht 177.8 cm; Wt 112.7 kg
[~2017-03-14 10:32] MED LIST changes: -DOCU100C37 PO; -HYDR2TAB6 PO; -IBUP-1773 PO; -NAPR-1070 PO; +NAPR550T PO; -SIME80TA16 PO
[2017-03-14 10:48] VITALS: BP 128/89
[2017-03-14 11:28] LABS: BASOPHILS % (AUTO) 0 % (0-10); EOSINOPHILS # (AUTO) 0.2 10^3/uL (0.0-0.3); EOSINOPHILS % (AUTO) 1 % (0-10); LYMPHOCYTES # (AUTO) 2.6 X 10^3 (1.0-4.0); LYMPHOCYTES % (AUTO) 22 % (12-44); MEAN CORPUSCULAR HEMOGLOBIN 29 PG (25-34); MEAN CORPUSCULAR HGB CONC 33 G/DL (32-36); MEAN CORPUSCULAR VOLUME 87 FL (80-99); MEAN PLATELET VOLUME 9.3 FL (7.4-10.4); MONOCYTES # (AUTO) 0.8 X 10^3 (0.0-1.0); MONOCYTES % (AUTO) 7 % (0-12); NEUTROPHILS # (AUTO) 8.5 X 10^3 (1.8-7.8); NEUTROPHILS % (AUTO) 70 % (42-75); PLATELET COUNT 325 10^3/uL (130-400); RED BLOOD COUNT 4.94 10^6/uL (4.35-5.85); RED CELL DISTRIBUTION WIDTH 12.9 % (10.0-14.5); WHITE BLOOD COUNT 12.1 10^3/uL (4.3-11.0)
== END 2017-03-14 13:02 | disposition home or self-care (01) ==
LOC: PREOP 10:32
PROVIDERS: ATTEND Obstetrics & Gynecology
DX: D25.9 Leiomyoma of uterus, unspecified; Z01.812 Encounter for preprocedural laboratory examination; N94.5 Secondary dysmenorrhea; R10.2 Pelvic and perineal pain; N75.0 Cyst of Bartholin's gland
CPT/HCPCS: 36415; 85025; 86850; 86900; 86901; 87081

== ENCOUNTER 2017-03-21 06:17 | Day surgery (SDC) | payer OTHER ==
[~2017-03-21] VITALS: Ht 177.8 cm; Wt 112.7 kg
--- OUTSIDE RECORDS SUMMARY | 2017-03-21 06:21 | XMS REPORT ---
Author Author URBAN OLIVAS [facility] Address [address] [place] [address] Care Team Providers Care Security Systems Manager Name Role Phone URBNA OLIVAS Unavailable PROBLEMS Type Condition ICD9-CM Code [id number] Code Onset Dates Condition Status SNOMED Code Problem Unspecified breast screening V76.10 Active 768719980 Problem Special screening examination, human papillomavirus [HPV] V73.81 Active 210531354 Problem Blood in stool 578.1 Active 028614225 Problem Routine gynecological examination V72.31 Active 202092228073005 Problem Other chronic nonalcoholic liver disease 571.8 Active 87238821 Problem Personal history of other allergy, other than to medicinal agents V15.09 Active 605111336 Problem Anal or rectal pain 569.42 Active 19717711 Problem Cyst of Bartholin's gland 616.2 Active 29365329 Problem Esophageal reflux 530.81 Active 798394354 Problem Seasonal allergic rhinitis, unspecified allergic rhinitis trigger J30.2 Active 705831840 Problem 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 and of unspecified site 079.4 Active 2371700 Problem Diarrhea 787.91 Active 05650127 Problem Abdominal pain, unspecified site 789.00 Active 92867356 Problem Papanicolaou smear of cervix with atypical squamous cells of undetermined significance (ASC-US) 795.01 Active 476356273 Problem Acute sinusitis, unspecified 461.9 Active 05872608 Problem Acute upper respiratory infections of unspecified site 465.9 Active 15785066 Problem Dysfunction of Eustachian tube 381.81 Active 30179351 Problem Unspecified hearing loss 389.9 Active 51936956 Problem Pain in soft tissues of limb 729.5 Active 30281500 Problem Unspecified fasciitis 729.4 Active 32556825 Problem Abnormal weight gain 783.1 Active 980696771 Problem Disturbance of skin sensation 782.0 Active 781923257 Problem Lateral epicondylitis of elbow 726.32 Active 736105616 Problem Hematuria, unspecified 599.70 Active 49425438 Problem Cervicalgia 723.1 Active 79344782 Problem Contact dermatitis and other eczema due to solvents 692.2 Active ALLERGIES Unknown Allergies SOCIAL HISTORY No smoking Hx information available PLAN OF CARE VITAL SIGNS MEDICATIONS Unknown Medications RESULTS No Results PROCEDURES No Known procedures IMMUNIZATIONS No Known Immunizations
[2017-03-21] MEDS ORDERED: CATHETER FLUSH 10 ML SYR IV PRN (06:30)
[2017-03-21] MEDS ORDERED: ceFAZolin 2 GM/NS 50 ML IV ONE (06:30)
[2017-03-21] MEDS ORDERED: metroNIDAZOLE 500 MG/100 ML IVPB (PRE-MIX) IV ONE (06:30)
[2017-03-21] MEDS: LACTATED RINGERS 1,000 ML IV PRN ×2 (06:30→08:00)
[2017-03-21] MEDS ORDERED: MIDAZOLAM 2 MG/2 ML (VERSED) VIAL IV ONE (06:45)
[2017-03-21] MEDS ORDERED: LACTATED RINGERS 1,000 ML IV ONE ×2 (06:53→07:43)
[2017-03-21] MEDS ORDERED: MIDAZOLAM 2 MG/2 ML (VERSED) VIAL ONE (06:53)
[2017-03-21] MEDS ORDERED: ROCURONIUM 50 MG/5 ML (ZEMURON) VIAL IV ONE ×2 (06:53→07:43)
[2017-03-21] MEDS ORDERED: proPOfol 200 MG/20 ML (DIPRIVAN) VIAL IV ONE (06:53)
[2017-03-21] MEDS ORDERED: LIDOCAINE PF 2% 5 ML (XYLOCAINE) VIAL ONE (06:53)
[2017-03-21] MEDS ORDERED: fentaNYL INJECTION 100 MCG/2 ML AMP ONE ×2 (06:53)
[2017-03-21] MEDS ORDERED: DEXAMETHASONE 10 MG/ML (DECADRON) 1 ML VIAL ONE (06:54)
[2017-03-21] MEDS ORDERED: ONDANSETRON 4 MG/2 ML (SDV) Z0FRAN ONE (06:54)
[2017-03-21] MEDS ORDERED: SEVOFLURANE (ULTANE) 15 ML INHAL SOLN ONE ×8 (06:57→09:29)
[2017-03-21] MEDS ORDERED: BUPIVACAINE 0.25% 30 ML (SENSORCAINE) VIAL ONE (07:02)
--- NOTE | 2017-03-21 07:04 | Progress Note-Pre Operative ---
Pre-Operative Progress Note H&P Reviewed The H&P was reviewed, patient examined and no changes noted. Date Seen by Provider: Mar 21, 2017 Time Seen by Provider: 06:55 Date H&P Reviewed: Mar 21, 2017 Time H&P Reviewed: 06:55 Pre-Operative Diagnosis: AUB, Dysmenorrhea, Bartholin's Gland cyst. BEN ESPINOZA DO Mar 21, 2017 7:04 am
[2017-03-21 07:25] VITALS: BP 108/67
[2017-03-21] MEDS ORDERED: GLYCOPYRROLATE 0.2 MG/ML (ROBINUL) 2 ML VIAL ONE (08:30)
[2017-03-21] MEDS ORDERED: NEOSTIGMINE (BLOXIVERZ ) 1 MG/1ML 10 ML VIAL ONE (08:30)
[2017-03-21] MEDS ORDERED: BUP/EPI 0.5% 1:200,000 (MARCAINE) 10ML VIAL IJ ONE (08:59)
[2017-03-21] MEDS ORDERED: morphine INJ 10 MG/ML 1ML (SYR OR VIAL) ONE (09:04)
[2017-03-21] MEDS ORDERED: KETOROLAC 30 MG/ML VIAL ONE (09:04)
[2017-03-21] MEDS: LACTATED RINGERS 1,000 ML IV SCH ×2 (09:40→16:00)
[2017-03-21] MEDS ORDERED: ZOLPIDEM 5 MG (AMBIEN) TAB PO PRN (09:45)
[2017-03-21] MEDS ORDERED: MEPERIDINE (DEMEROL) INJ 50 MG/ML IVP PRN (09:45)
[2017-03-21] MEDS ORDERED: CHLORASEPTIC LOZENGE MM PRN (09:45)
[2017-03-21] MEDS ORDERED: ONDANSETRON 4 MG/2 ML (SDV) Z0FRAN IVP PRN (09:45)
[2017-03-21] MEDS ORDERED: ONDANSETRON 4 MG/2 ML (SDV) Z0FRAN IV PRN (09:45)
[2017-03-21] MEDS ORDERED: ANTACID SUSP 30 ML UDC (MYLANTA) PO PRN (09:45)
--- NOTE | 2017-03-21 09:49 | Progress Note-Post Operative ---
Post-Operative Progess Note Surgeon (s)/Vamp Maker (s) Surgeon BEN ESPINOZA DO Vamp Maker: Erendira Shell Pre-Operative Diagnosis AUB, Dysmenorrhea, Bartholin's Gland cyst. Post-Operative Diagnosis same Procedure & Operative Findings Date of Procedure 03/21/17 Procedure Performed/Findings RATL with BSO and Bartholin's gland marsupialization Anesthesia Type GETA Estimated Blood Loss Estimated blood loss (mL): 150 Specimens/Packing Specimens Removed uterus tubes and ovaries BEN ESPINOZA DO Mar 21, 2017 09:49
[2017-03-21] MEDS ORDERED: HYDR2TAB6 PO (09:55)
[2017-03-21] MEDS ORDERED: DOCU100C37 PO (09:55)
[2017-03-21] MEDS ORDERED: SIME80TA16 PO (09:55)
[2017-03-21] MEDS ORDERED: IBUP-1773 PO (09:55)
--- NOTE | 2017-03-21 09:56 | Discharge Inst-Women's Service ---
Discharge Inst-Women's Serv Depart Medication/Instructions New, Converted or Re-Newed RX: RX on Chart Consults/Follow Up Additional Follow Up: Yes Orders/Referrals Dr. Vazquez in 7-10 days and in 8 weeks Activity Activity: Activity as Tolerated Driving Instructions: No Driving for 1 Week (do not drive while taking narcotic pain meds) NO SMOKING: NO SMOKING Nothing Inside Vagina: No Douching, No [place], No Tampons Diet Discharge Diet: No Restrictions Symptoms to Report to : Bleeding Excessive, Pain Increased, Fever Over 101 Degrees F, Vaginal Bleeding Increase, Questions/Concerns For Any Problems or Questions: Contact Your Physician Skin/Wound Care Infection Signs and Symptoms: Increased Redness, Foul Odor of Wound, Increased Drainage, Skin Itchy or Has a Rash, Increased Swelling, Temperature Above 101 F Operative Area Clean and Dry: Keep Incision Clean/Dry Stitches/Marizol/Dermabond: Dermabond, Care of Stitches Bathing Instructions: BEN Orozco DO Mar 21, 2017 09:56
[2017-03-21] MEDS: morphine INJ 10 MG/ML 1ML (SYR OR VIAL) IVP PRN ×2 (10:00→10:11)
[2017-03-21] MEDS: KETOROLAC 30 MG/ML VIAL IV PRN ×2 (10:03→18:25)
[2017-03-21 10:45] VITALS: BP 118/68
[2017-03-21 11:25] VITALS: BP 129/66
[2017-03-21] MEDS: HYDROmorphone (DILAUDID) 2 MG TAB PO PRN ×2 (11:34→15:59)
--- NOTE | 2017-03-21 12:35 | OPERATIVE REPORT ---
DATE OF SERVICE: PREOPERATIVE DIAGNOSIS: 1. A 47-year-old female with fibroid uterus. 2. Dysmenorrhea. 3. Chronic pelvic pain. 4. Abnormal uterine bleeding. 5. Cyst of the right Bartholin's duct gland. POSTOPERATIVE DIAGNOSIS: 1. A 47-year-old female with fibroid uterus. 2. Dysmenorrhea. 3. Chronic pelvic pain. 4. Abnormal uterine bleeding. 5. Cyst of the right Bartholin's duct gland. PROCEDURE: Robotic assisted total laparoscopic hysterectomy with bilateral salpingo-oophorectomy. SURGEON: Dr. Raul Vazquez. OLIVING MACHINE OPERATOR: DUKE Torres. ANESTHESIA: General endotracheal. ESTIMATED BLOOD LOSS: 150 mL. URINE OUTPUT: 100 mL and clear at end of the procedure. FLUIDS: 2 liters of lactated ringer's solution. FINDINGS: This is a slightly enlarged uterus with a posterior subserosal fibroid as well as a fundal small serosal fibroid. Bilateral grossly normal fallopian tubes. Adhesions of bilateral ovaries to the pelvic sidewall and the infundibulopelvic ligament. Adhesions of the left ovary to the descending sigmoid colon as well as an enlarged right Bartholin's gland cyst. SPECIMENS SENT: Uterus, bilateral fallopian tubes and ovaries. INDICATIONS FOR PROCEDURE: This 47-year-old female is a patient that earlier in the year had been seen by me and counseled about treatment options for her chronic pelvic pain as well as dysmenorrhea and the findings of a Bartholin's gland cyst. 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 She was finally able to get some time off in order to have the procedure done. She continued to have the significant worsening symptoms. These were again reviewed with the patient at her preop visit. Risks once again were reviewed with the patient in detail including risks of bleeding, infection, damage to any surrounding structures including but not limited to bowel, bladder, ureter, kidneys, risk for reoperation, risk for blood transfusion and even . Everything was discussed with the patient prior to beginning the procedure. Consent was obtained in the preoperative area and patient was taken to the operating room. OPERATIVE REPORT IN DETAIL: Once in the operating room, general anesthesia was found to be adequate. She was placed in dorsal lithotomy position and prepped and draped in normal sterile fashion. A Wilcox catheter was placed using sterile technique. A timeout was performed. I then placed a weighted speculum into the patient's vagina. A right angle retractor is used to visualize the cervix. It was grasped at the 12 o'clock position using a single tooth tenaculum, an 0 Vicryl stitch was then placed to the anterior lip of the cervix, which serves as my retraction point when I place the GRIS uterine manipulator. The uterus was then sounded to a cavity depth of 8 cm. I then selected 8 cm GRIS uterine manipulator tip and a 3.5 colpotomy ring and placed the GRIS uterine manipulator tip into the intrauterine cavity and deployed the colpotomy ring around the vaginal fornix. Once this was in place, excellent uterine manipulation is noted on bimanual exam. I then performed a change of gloves and turned my attention to the abdomen where infraumbilically I infiltrate this area using 0.25% Marcaine and make an 8 mm incision. I directed a Veress needle through this incision until intraperitoneal placement was confirmed using the saline drop test. I then proceeded with insufflation using CO2 gas. An opening pressure of 5 mmHg was noted. I proceeded to maximum pressure of 15 mmHg at which point I removed the Veress needle and introduced an 8 mm blunt da Colt camera trocar. Once this was in place, I am able to confirm intraperitoneal placement using the da Colt laparoscope. I then had the patient placed in steep Trendelenburg after I briefly scanned the upper abdominal anatomy for any evidence or signs of damage or gross abnormalities. Once the patient was placed in steep Trendelenburg I am able to visualize the findings described in my findings above. I placed 2 lateral trocars approximately 8 cm lateral to my infraumbilical trocar using an 8 mm incision, I infiltrate the skin using 0.25% Marcaine, make an 8 mm incision with a knife and directing the trocars under direct visualization of the laparoscope. Once these are in place, I bring in the da Colt robot and dock it in appropriate fashion. I placed the vessel sealer in the left hand on Monopolar artur in the right hand and proceed with my dissection. First I take down on the adhesions of the descending sigmoid colon epiploica to the left ovary. Once this is taken down I am able to isolate the infundibulopelvic ligament, bipolar cauterize and transect this using the vessel sealer. I do this bilaterally. I then grasped the round ligament, bipolar cauterize this and transect it using the vessel sealer. I performed the dissection similarly on the contralateral side. I then grasped the entire broad ligament and bipolar cauterized this and transected it using the vessel sealer. This was taken down to the level of the lower uterine segment, at which point I separate the anterior posterior leaflet to the broad ligament. The anterior leaflet is taken down to the anterior vaginal fornix, posterior leaflet was taken down to the posterior vaginal fornix. I then am able to isolate the uterine vessels laterally, bipolar cauterizing them and transecting them using the vessel sealer. During my dissection of the anterior vaginal fornix, I encounter an aberrant blood vessel which causes significant bleeding and interferes with my dissection. I have to proceed with placing a fourth trocar. This is in the right upper quadrant. The skin is infiltrated using 0.25% Marcaine and the incision is made with a knife. The trocar was placed under direct visualization of laparoscope. Once it is in place, I am able to have my inventory assistant help me by suction irrigating this area allowing me to isolate the blood vessel and bipolar cauterize and transect it using the vessel sealer. I then perform a colpotomy at 12 o'clock position. Using the Monopolar artur, I take this colpotomy circumferentially around the vaginal fornix, amputating the cervix away from the vagina. The uterus, bilateral fallopian tubes and ovaries are then removed through the vagina. I then proceed with closing the vaginal cuff using 2-0 Vicryl suture in a [id number] fashion in the lateral vaginal apices. I colposuspend them to the uterosacral ligaments. Once these sutures are in place, I then proceed to close the remainder of the vaginal cuff using 2-0 V-Loc in a running fashion, after which there was no active bleeding noted from any of my dissection planes. I am able to visualize bilateral ureteral peristalsis. I then undocked the da Colt robot and proceed with the remainder of the case laparoscopically. I copiously irrigated the pelvis once again using normal saline. There was no active bleeding noted from any of my dissection planes. I placed FloSeal hemostatic agent over all my planes of dissection to ensure excellent postoperative hemostasis. I then had the patient taken out of steep Trendelenburg and remove all of the trocars under direct visualization with laparoscope except for the infraumbilical trocar which I leave in place to introduce 10 mL of 0.25% Marcaine and release all insufflation. This trocar was then removed and the skin is then closed using 4-0 Monocryl and interrupted subcuticular stitches. Dermabond was applied to the incision and sterile Band-Aids were placed over these. I then take my attention once again to the vagina where I isolate the right Bartholin's gland which is easily found due to its size and enlargement. I infiltrate the mucosa of the mucocutaneous junction using 0.5% Marcaine mixed with epinephrine and then make a linear incision down the mucocutaneous junction encountering the cyst of the Bartholin's cyst. There is a purulent material that is expressed from this. Once the cyst is adequately opened approximately 2-3 cm, I then sew the cyst wall open using 3-0 Vicryl suture in interrupted fashion around the borders of the cyst opening from my incision after which the planes of dissection were hemostatic and the cyst wall could be easily visualized on examination as being patent and sutured open and adequately marsupialized. Wilcox catheter was left in place. The patient tolerated the procedure well and was taken to the recovery room in stable condition. Lap and sponge counts were correct at the end of the procedure. Instrument count was correct as well. Two grams of Ancef and 500 mg of Flagyl were given preoperatively for infection prophylaxis. Job ID: [id number] DocumentID: [id number] Dictated Date: 03/21/2017 10:14:50 Electrotype Molder Date: 03/21/2017 12:34:52 Dictated By: DO DEDE OCONNELL
[2017-03-21 12:40] VITALS: BP 119/73
[2017-03-21 15:30] VITALS: BP 117/73
[2017-03-21] MEDS: DOCUSATE SODIUM 100 MG (COLACE) CAP PO PRN (15:59)
[2017-03-21] MEDS: SIMETHICONE 80 MG (MYLICON) CHEW PO PRN (15:59)
[2017-03-21 20:35] VITALS: BP 108/70
[2017-03-22 00:27] VITALS: BP 110/66
[2017-03-22] MEDS: IBUPROFEN 600 MG (MOTRIN) TAB PO PRN ×2 (00:30→07:38)
[2017-03-22] MEDS ORDERED: INFLUENZA TRIvalent 2017-2018 0.5 ML/45 MCG SYR IM ONE (07:00)
[2017-03-22 07:40] VITALS: BP 122/69
[2017-03-22] MEDS: DOCUSATE SODIUM 100 MG (COLACE) CAP PO PRN (07:57)
[2017-03-22] MEDS: SIMETHICONE 80 MG (MYLICON) CHEW PO PRN (07:57)
[2017-03-22 09:35] VITALS: BP 122/69
== END 2017-03-22 09:35 | disposition home or self-care (01) ==
LOC: SDC 06:17 → WS 10:40 → SDC 03-22 09:35
PROVIDERS: ATTEND Obstetrics & Gynecology
DX: R10.2 Pelvic and perineal pain (principal); N94.6 Dysmenorrhea, unspecified; D25.1 Intramural leiomyoma of uterus; D25.2 Subserosal leiomyoma of uterus; N75.0 Cyst of Bartholin's gland; N73.6 Female pelvic peritoneal adhesions (postinfective); N83.201 Unspecified ovarian cyst, right side; N83.202 Unspecified ovarian cyst, left side
CPT/HCPCS: 84703; 94664